=== PATIENT | female | born 1975 | race Caucasian/White ===

== ENCOUNTER 2017-09-04 17:45 | Emergency (ER) | payer SELFPAY ==
--- NOTE | 2017-09-04 18:58 | ED ---
Lower Extremity - HPI Summary HPI Summary: 42-year-old female presents to the ankle pain since yesterday. She states she stepped out of car and twisted her right ankle. She's not been able to put weight on the ankle. She denies any previous injury to the ankle. No numbness or tingling. No knee pain. No other injury. Has not taking anything for pain. Has been using crutches. Works in office. - History of Current Complaint Chief Complaint: EDExtremityLower Stated Complaint: RT ANKLE INJURY Time Seen by Provider: 09/04/17 18:32 Pain Intensity: 2 - Allergies/Home Medications Allergies/Adverse Reactions: Allergies Allergy/AdvReac Type Severity Reaction Status Date / Time No Known Allergies Allergy Verified 09/04/17 17:51 PMH/Surg Hx/FS Hx/Imm Hx Endocrine/Hematology History: Denies: Hx Anticoagulant Therapy Cardiovascular History: Denies: Hx Myocardial Infarction Infectious Disease History: No Infectious Disease History: Denies: Traveled Outside the [place] in Last 30 Days - Family History Known Family History: Positive: Hypertension - Social History Alcohol Use: Occasionally Alcohol Amount: 2 a month Substance Use Type: Reports: None Smoking Status (MU): Never Smoked Tobacco Have You Smoked in the Last Year: No Review of Systems Negative: Fever Negative: Chest Pain Negative: Shortness Of Breath Positive: Myalgia - right ankle pain All Other Systems Reviewed And Are Negative: Yes Physical Exam Triage Information Reviewed: Yes Vital Signs On Initial Exam: Initial Vitals Temp Pulse Resp BP Pulse Ox 98.7 F 81 14 168/95 100 09/04/17 17:52 09/04/17 17:52 09/04/17 17:52 09/04/17 17:52 09/04/17 17:52 Vital Signs Reviewed: Yes Appearance: Positive: Well-Appearing Skin: Positive: Warm, Dry Head/Face: Positive: Normal Head/Face Inspection Eyes: Positive: Normal, Conjunctiva Clear ENT: Positive: Pharynx normal Respiratory/Lung Sounds: Positive: Clear to Auscultation, Breath Sounds Present Cardiovascular: Positive: Normal, RRR Musculoskeletal: Positive: Limited @ - right ankle, Edema Right - lateral malleolus, Other - tenderness over lateral malleolus, good pulse, capillary refill<2 secs Neurological: Positive: Normal Psychiatric: Positive: Normal Diagnostics - Vital Signs Vital Signs Temp Pulse Resp BP Pulse Ox 09/04/17 17:52 98.7 F 81 14 168/95 100 - Laboratory Lab Statement: Any lab studies that have been ordered have been reviewed, and results considered in the medical decision making process. - Radiology ankle Xray Interpretation: Positive (See Comments) - IMPRESSION: #. Lateral soft tissue swelling at the ankle and talocrural joint effusion. Consider potential lateral supporting ligament injury. #. Negative for fracture or articular malalignment at the ankle or foot Radiology Interpretation Completed By: Radiologist Lower Extremity Course/Dx - Course Course Of Treatment: 42-year-old female presents to the ankle pain since yesterday. She states she stepped out of car and twisted her right ankle. She' s not been able to put weight on the ankle. She denies any previous injury to the ankle. No numbness or tingling. No knee pain. No other injury. Has not taking anything for pain. Has been using crutches. Works in office. On exam has tenderness over lateral malleolus of the right foot. Neurovascularly intact. X-ray shows swelling lateral aspect ankle. We'll treat as a sprain with rice and gave gel splint. Patient understands agrees with plan. - Diagnoses Differential Diagnosis/HQI/PQRI: Positive: Fracture (Closed), Sprain, Strain Provider Diagnoses: Right ankle pain Discharge - Sign-Out/Discharge Documenting (check all that apply): Patient Departure - Discharge Plan Condition: Good Disposition: HOME Patient Education Materials: Ankle Sprain (ED) Referrals: Monique Caballero MD [Primary Care Provider] - Eros Munoz MD [Medical Doctor] - Additional Instructions: Stay off ankle as much as possible Ice, elevate, Ibuprofen or ibuprofen every 6 hours for pain Follow up with ortho if no improvement in a week Return to ED if develop or any new or worsening symptoms - Billing Disposition and Condition Condition: GOOD Disposition: Home
--- NOTE | 2017-09-04 19:13 | RAD ---
Indication: Lateral RIGHT ankle pain and dorsal metatarsal pain following injury. Comparison: No relevant prior exams available on the [facility] for comparison. Technique: AP, lateral, and oblique views RIGHT foot. AP, lateral, and oblique views RIGHT ankle. Report: Talocrural joint effusion. Negative for fracture at the ankle or foot. Normal articular alignment. Mild soft tissue swelling over the lateral malleolus. Unremarkable soft tissue contours at the foot. IMPRESSION: #. Lateral soft tissue swelling at the ankle and talocrural joint effusion. Consider potential lateral supporting ligament injury. #. Negative for fracture or articular malalignment at the ankle or foot
[2017-09-04 19:36] VITALS: BP 130/96
--- NOTE | 2017-09-05 08:39 | RAD ---
Indication: Lateral RIGHT ankle pain and dorsal metatarsal pain following injury. Comparison: No relevant prior exams available on the [facility] [place] [facility] P[facility] for comparison. Technique: AP, lateral, and oblique views RIGHT foot. AP, lateral, and oblique views RIGHT ankle. Report: Talocrural joint effusion. Negative for fracture at the ankle or foot. Normal articular alignment. Mild soft tissue swelling over the lateral malleolus. Unremarkable soft tissue contours at the foot. IMPRESSION: #. Lateral soft tissue swelling at the ankle and talocrural joint effusion. Consider potential lateral supporting ligament injury. #. Negative for fracture or articular malalignment at the ankle or foot
== END 2017-09-04 19:35 | disposition home or self-care (01) ==
LOC: ED 17:45
DX: M25.571 Pain in right ankle and joints of right foot (principal); X50.0XXA Overexertion from strenuous movement or load, initial encounter; Y92.9 Unspecified place or not applicable
CPT/HCPCS: 99282